=== PATIENT | male | born 1965 | race Caucasian/White ===

== ENCOUNTER 2016-08-14 12:08 | Emergency (ER) | payer OTHER ==
[~2016-08-14] VITALS: Ht 175.3 cm; Wt 63.0 kg
[2016-08-14 14:15] VITALS: BP 121/74
== END 2016-08-14 14:15 | disposition home or self-care (01) | DRG 115 ==
LOC: ED 12:08
PROC: 08CSXZZ Extirpation of Matter from Right Conjunctiva, External Approach (ICD-10-PCS; principal; 2016-08-14)
DX: T15.11XA Foreign body in conjunctival sac, right eye, initial encounter (principal); H53.8 Other visual disturbances; H57.11 Ocular pain, right eye; W22.8XXA Striking against or struck by other objects, initial encounter; Y93.89 Activity, other specified; Y92.89 Other specified places as the place of occurrence of the external cause

== ENCOUNTER 2017-08-01 08:49 | Emergency (ER) | payer OTHER ==
[~2017-08-01] VITALS: Ht 175.3 cm; Wt 62.0 kg
[2017-08-01] MEDS ORDERED: GLUCOSAMINE CHO1 CA3 PO (09:06)
[2017-08-01] MEDS ORDERED: MULTI VIT PO (09:06)
[2017-08-01] MEDS ORDERED: IMITREX100 M1 PO (09:58)
[2017-08-01 10:10] VITALS: BP 155/89
== END 2017-08-01 10:10 | disposition home or self-care (01) | DRG 103 ==
LOC: ED 08:49
DX: G43.909 Migraine, unspecified, not intractable, without status migrainosus (principal); F17.210 Nicotine dependence, cigarettes, uncomplicated; H53.149 Visual discomfort, unspecified

== ENCOUNTER 2017-08-08 10:15 | Emergency (ER) | payer OTHER ==
[~2017-08-08] VITALS: Ht 175.3 cm; Wt 66.0 kg
[~2017-08-08 10:15] MED LIST: GLUCOSAMINE CHO1 CA3 PO; IMITREX100 M1 PO; MULTI VIT PO
[2017-08-08 11:21] LABS: INFLUENZA A NONE DETECTED (NONE DETECT); INFLUENZA B NONE DETECTED (NONE DETECT)
[2017-08-08] MEDS ORDERED: ZPAK PO (11:23)
[2017-08-08 11:39] VITALS: BP 127/83
== END 2017-08-08 11:44 | disposition home or self-care (01) | DRG 153 ==
LOC: ED 10:15
PROVIDERS: Family Medicine
DX: J06.9 Acute upper respiratory infection, unspecified (principal); F17.210 Nicotine dependence, cigarettes, uncomplicated; R05 Cough

== ENCOUNTER 2018-05-29 11:37 | Observation (INO) | payer SELFPAY ==
[~2018-05-29] VITALS: Ht 175.3 cm; Wt 68.9 kg
[~2018-05-29 11:37] MED LIST changes: +ZPAK PO
[2018-05-29 11:57] LABS: HEMATOCRIT 43.4 % (39.0-50.0); HEMOGLOBIN 14.9 g/dl (14.0-18.0); IMMATURE GRANULOCYTES 0.3 % (0.0-5.0); MEAN CELL VOLUME 92.9 fL CALC (80.0-100.0); MEAN CORPUSCULAR HGB 31.9 pG CALC (26.0-32.0); MEAN CORPUSCULAR HGB CONC 34.3 g/L CALC (32.0-36.0); NEUT# 6.59 thou/uL (1.82-7.42); RED BLOOD COUNT 4.67 mill/uL (4.70-6.10); RED CELL DISTRI WIDTH 13.3 % (11.5-15.5)
[2018-05-29 12:25] LABS: ANION GAP 13 (6-22 (CALC)); BUN 8 mg/dL (9-20); BUN/CREATININE RATIO 11 (12-20 (CALC)); CARBON DIOXIDE 25 mmol/l (22-30); CHLORIDE 107 mmol/l (95-108); CREATININE 0.7 mg/dL (0.7-1.3); GFR > 60 ML/MIN (>=60 (CALC)); GFR FOR AFR.AMER. > 60 ML/MIN (>=60 (CALC)); SODIUM 141 mmol/l (137-146)
[2018-05-29 14:11] VITALS: BP 130/71
[2018-05-29 15:45] VITALS: BP 140/85
[2018-05-29 19:35] VITALS: BP 131/89
[2018-05-29 23:40] VITALS: BP 141/78
[2018-05-30 04:16] VITALS: BP 140/69
[2018-05-30 05:47] LABS: HEMATOCRIT 44.6 % (39.0-50.0); HEMOGLOBIN 15.2 g/dl (14.0-18.0); IMMATURE GRANULOCYTES 0.2 % (0.0-5.0); MEAN CELL VOLUME 92.9 fL CALC (80.0-100.0); MEAN CORPUSCULAR HGB 31.7 pG CALC (26.0-32.0); MEAN CORPUSCULAR HGB CONC 34.1 g/L CALC (32.0-36.0); NEUT# 5.19 thou/uL (1.82-7.42); RED BLOOD COUNT 4.8 mill/uL (4.70-6.10); RED CELL DISTRI WIDTH 13.2 % (11.5-15.5)
[2018-05-30 06:13] LABS: ALBUMIN 3.8 g/dL (3.2-5.0); ALKALINE PHOSPHATASE 63 u/l (38-126); ANION GAP 12 (6-22 (CALC)); BILIRUBIN, TOTAL 0.5 mg/dL (0.0-1.4); BUN 12 mg/dL (9-20); BUN/CREATININE RATIO 14 (12-20 (CALC)); CALCULATED LDLCHOLESTEROL 103 mg/dL (62-129 (CALC)); CARBON DIOXIDE 25 mmol/l (22-30); CHLORIDE 107 mmol/l (95-108); CREATININE 0.8 mg/dL (0.7-1.3); GFR > 60 ML/MIN (>=60 (CALC)); GFR FOR AFR.AMER. > 60 ML/MIN (>=60 (CALC)); HDL CHOLESTEROL 42 mg/dL (>=40); MAGNESIUM 1.8 mg/dL (1.6-2.3); SGOT/AST 19 u/l (17-59); SODIUM 140 mmol/l (137-146); TOTAL CHOLESTEROL 168 mg/dl (0-199); TOTAL PROTEIN 6.4 g/dL (6.3-8.2); TOTAL TRIGLYCERIDES 116 mg/dl (30-149); VLDL CHOLESTROL 23 mg/dl (8-62 (CALC))
[2018-05-30 08:03] VITALS: BP 134/83
[2018-05-30 11:06] VITALS: BP 135/71
[2018-05-30] MEDS ORDERED: COZAAR25 MG PO (13:10)
== END 2018-05-30 14:49 | disposition home or self-care (01) | DRG 313 ==
LOC: ED 11:37 → ED-I 12:37 → ED 12:48 → MS2 12:49
PROVIDERS: Family Medicine; ADMIT Internal Medicine Nephrology; ATTEND Internal Medicine Nephrology
DX: R07.89 Other chest pain (principal); I10 Essential (primary) hypertension; F17.210 Nicotine dependence, cigarettes, uncomplicated; Z82.49 Family history of ischemic heart disease and other diseases of the circulatory system
CPT/HCPCS: G0378; J1650

== ENCOUNTER 2018-06-12 13:30 | Emergency (ER) | payer OTHER ==
[~2018-06-12] VITALS: Ht 175.3 cm; Wt 65.0 kg
[~2018-06-12 13:30] MED LIST changes: +COZAAR25 MG PO
[2018-06-12 14:30] VITALS: BP 121/80
== END 2018-06-12 14:30 | disposition home or self-care (01) | DRG 605 ==
LOC: ED 13:30
DX: S90.32XA Contusion of left foot, initial encounter (principal); M19.90 Unspecified osteoarthritis, unspecified site; W20.8XXA Other cause of strike by thrown, projected or falling object, initial encounter; Y92.89 Other specified places as the place of occurrence of the external cause; Y99.0 Civilian activity done for income or pay

== ENCOUNTER 2022-02-25 13:51 | Emergency (ER) | payer OTHER ==
[~2022-02-25] VITALS: Ht 175.3 cm; Wt 66.8 kg
[2022-02-25 16:20] LABS: HEMATOCRIT 50.5 % (39.0-50.0); IMMATURE GRANULOCYTES 0.3 % (0.0-5.0); MEAN CELL VOLUME 91.5 fL CALC (80.0-100.0); MEAN CORPUSCULAR HGB 31.5 pG CALC (26.0-32.0); MEAN CORPUSCULAR HGB CONC 34.5 g/dL CAL (32.0-36.0); NEUT# 10.95 thou/uL (1.82-7.42); RED BLOOD COUNT 5.52 mill/uL (4.70-6.10)
[2022-02-25 16:21] LABS: HEMOGLOBIN 17.4 g/dl (14.0-18.0); URINE BILIRUBIN - DIPSTICK NEGATIVE (NEGATIVE); URINE BLOOD DIPSTICK NEGATIVE (NEGATIVE); URINE COLOR YELLOW; URINE GLUCOSE - DIPSTICK NEGATIVE (NEGATIVE); URINE KETONE NEGATIVE (NEGATIVE); URINE LEUK ESTERASE NEGATIVE (NEGATIVE); URINE NITRITE - DIPSTICK NEGATIVE (Negative); URINE PROTEIN - DIPSTICK NEGATIVE (NEG-TRACE); URINE UROBILINOGEN - DIPSTICK 0.2 E.U./dL (0.2)
[2022-02-25 16:32] LABS: ALBUMIN 4.8 g/dL (3.2-5.0); ALKALINE PHOSPHATASE 77 u/l (38-126); ANION GAP 16 (6-22 (CALC)); BILIRUBIN, TOTAL 0.5 mg/dL (0.0-1.4); BUN 10 mg/dL (9-20); BUN/CREATININE RATIO 10 (12-20 (CALC)); CARBON DIOXIDE 29 mmol/l (22-30); CHLORIDE 101 mmol/l (95-108); CPK 64 u/l (52-200); CREATININE 0.9 mg/dL (0.7-1.3); GFR FOR AFR.AMER. > 60 ML/MIN (>=60 (CALC)); GFR OTHER RACES > 60 ML/MIN (>=60 (CALC)); LIPASE 179 u/l (23-300); POTASSIUM 3.7 mmol/l (3.5-5.1); SGOT/AST 32 u/l (17-59); SODIUM 142 mmol/l (137-146); TOTAL PROTEIN 8.8 g/dL (6.3-8.2)
[2022-02-25] MEDS ORDERED: CYCLOBENZAPRINE10 MG PO (18:27)
[2022-02-25] MEDS ORDERED: HYDROCO/APAP1 TA9 PO (18:27)
[2022-02-25] MEDS ORDERED: NAPROXEN500 MG PO (18:27)
[2022-02-25 18:39] VITALS: BP 126/82
== END 2022-02-25 18:54 | disposition home or self-care (01) | DRG 563 ==
LOC: ED 13:51
PROVIDERS: Nurse Practitioner
DX: S39.012A Strain of muscle, fascia and tendon of lower back, initial encounter (principal); S30.0XXA Contusion of lower back and pelvis, initial encounter; W31.89XA Contact with other specified machinery, initial encounter
CPT/HCPCS: Q9967

== ENCOUNTER 2022-12-08 14:39 | Observation (INO) | payer BC ==
[2022-12-08] VITALS (13 sets, daily range): BP systolic 124–149; BP diastolic 74–95
[~2022-12-08] VITALS: Ht 175.3 cm; Wt 63.5 kg
[~2022-12-08 14:39] MED LIST changes: +CYCLOBENZAPRINE10 MG PO; +HYDROCO/APAP1 TA9 PO; +NAPROXEN500 MG PO
[2022-12-08 15:07] LABS: BASO% 0.3 % (0-3); EOS% 1.4 % (0-8); HEMATOCRIT 50.6 % (39.0-50.0); IMMATURE GRANULOCYTES 0.2 % (0.0-5.0); LYMPH% 16.2 % (15-41); MEAN CELL VOLUME 91.7 fL CALC (80.0-100.0); MEAN CORPUSCULAR HGB 30.8 pG CALC (26.0-32.0); MEAN CORPUSCULAR HGB CONC 33.6 g/dL CAL (32.0-36.0); MONO% 9.1 % (2-13); NEUT# 10.86 thou/uL (1.82-7.42); NEUT% 72.8 % (42-76); RED BLOOD COUNT 5.52 mill/uL (4.70-6.10); RED CELL DISTRI WIDTH 14.1 % (11.5-15.5)
[2022-12-08 15:13] LABS: ALBUMIN 4.7 g/dL (3.2-5.0); BILIRUBIN, TOTAL 0.6 mg/dL (0.2-1.3); CREATININE 1.8 mg/dL (0.7-1.3); POTASSIUM 3.6 mmol/l (3.5-5.1); TOTAL PROTEIN 8.5 g/dL (6.3-8.2)
[2022-12-08 15:46] LABS: URINE COLOR YELLOW; URINE GLUCOSE - DIPSTICK NEGATIVE (NEGATIVE); URINE KETONE TRACE mg/dL (NEGATIVE)
[2022-12-08 15:47] LABS: URINE BLOOD DIPSTICK MODERATE (NEGATIVE); URINE LEUK ESTERASE MODERATE (NEGATIVE); URINE NITRITE - DIPSTICK NEGATIVE (Negative); URINE PH 5.5 (4.5-8.0); URINE PROTEIN - DIPSTICK 100 mg/dL (NEG-TRACE); URINE SPECIFIC GRAVITY 1.025; URINE UROBILINOGEN - DIPSTICK 0.2 E.U./dL (0.2)
[2022-12-08 15:58] LABS: URINE WBC 20-50 WBC/hpf (0-5)
[2022-12-08 15:59] LABS: URINE BACTERIA FEW hpf
[2022-12-09 00:25] VITALS: BP 112/70
[2022-12-09 00:34] VITALS: BP 112/70
[2022-12-09 04:00] VITALS: BP 132/75
[2022-12-09 04:01] VITALS: BP 132/75
[2022-12-09 05:53] LABS: MEAN CELL VOLUME 94.4 fL CALC (80.0-100.0); MEAN CORPUSCULAR HGB 31.4 pG CALC (26.0-32.0); MEAN CORPUSCULAR HGB CONC 33.3 g/dL CAL (32.0-36.0); RED BLOOD COUNT 4.43 mill/uL (4.70-6.10); RED CELL DISTRI WIDTH 14.3 % (11.5-15.5)
[2022-12-09 06:07] LABS: HEMATOCRIT 41.8 % (39.0-50.0); HEMOGLOBIN 13.9 g/dl (14.0-18.0)
[2022-12-09 06:28] VITALS: BP 119/72
[2022-12-09 06:30] LABS: ALKALINE PHOSPHATASE 65 u/l (38-126); ANION GAP 8 (6-22 (CALC)); BILIRUBIN, TOTAL 0.5 mg/dL (0.2-1.3); BUN 16 mg/dL (9-20); BUN/CREATININE RATIO 15 (12-20 (CALC)); CARBON DIOXIDE 25 mmol/l (22-30); CHLORIDE 109 mmol/l (95-108); GFR FOR AFR.AMER. > 60 ML/MIN (>=60 (CALC)); GFR OTHER RACES > 60 ML/MIN (>=60 (CALC)); POTASSIUM 3.4 mmol/l (3.5-5.1); SGOT/AST 29 u/l (17-59); SODIUM 139 mmol/l (137-146)
[2022-12-09 06:34] LABS: ALBUMIN 3.4 g/dL (3.2-5.0); TOTAL PROTEIN 6.4 g/dL (6.3-8.2)
[2022-12-09 11:26] VITALS: BP 124/73
[2022-12-09] MEDS ORDERED: CIPROFLOXACN500 MG PO (13:26)
== END 2022-12-09 14:42 | disposition home or self-care (01) | DRG 641 ==
LOC: ED 14:39 → ED-I 16:00 → ED 16:45 → MS2 16:46
PROVIDERS: Family Medicine; ADMIT Student in an Organized Health Care Education/Training Program; ATTEND Student in an Organized Health Care Education/Training Program
DX: E86.0 Dehydration (principal); N17.9 Acute kidney failure, unspecified; N39.0 Urinary tract infection, site not specified; F17.200 Nicotine dependence, unspecified, uncomplicated; Z87.442 Personal history of urinary calculi; Z87.440 Personal history of urinary (tract) infections
CPT/HCPCS: G0378; J1650

== ENCOUNTER 2022-12-28 16:39 | Emergency (ER) | payer BC ==
[2022-12-28] VITALS (14 sets, daily range): BP systolic 115–140; BP diastolic 75–93
[~2022-12-28] VITALS: Ht 175.3 cm; Wt 77.0 kg
[~2022-12-28 16:39] MED LIST changes: +CIPROFLOXACN500 MG PO
[2022-12-28 17:21] LABS: BASO% 0.4 % (0-3); IMMATURE GRANULOCYTES 0.2 % (0.0-5.0); LYMPH% 21.3 % (15-41); MEAN CELL VOLUME 92.8 fL CALC (80.0-100.0); MEAN CORPUSCULAR HGB CONC 34.4 g/dL CAL (32.0-36.0); MONO% 9.8 % (2-13); NEUT# 7.66 thou/uL (1.82-7.42); NEUT% 66.3 % (42-76); RED BLOOD COUNT 5.16 mill/uL (4.70-6.10); RED CELL DISTRI WIDTH 13.8 % (11.5-15.5)
[2022-12-28 17:25] LABS: HEMATOCRIT 47.9 % (39.0-50.0); HEMOGLOBIN 16.5 g/dl (14.0-18.0)
[2022-12-28 17:33] LABS: ALKALINE PHOSPHATASE 70 u/l (38-126); BILIRUBIN, TOTAL 0.6 mg/dL (0.2-1.3); BUN 24 mg/dL (9-20); BUN/CREATININE RATIO 17 (12-20 (CALC)); CARBON DIOXIDE 25 mmol/l (22-30); CHLORIDE 104 mmol/l (95-108); CPK 76 u/l (55-170); CREATININE 1.4 mg/dL (0.7-1.3); GFR FOR AFR.AMER. > 60 ML/MIN (>=60 (CALC)); GFR OTHER RACES 52 ML/MIN (>=60 (CALC)); SGOT/AST 40 u/l (17-59); SODIUM 139 mmol/l (137-146)
[2022-12-28 17:34] LABS: ALBUMIN 4.7 g/dL (3.2-5.0); ANION GAP 15 (6-22 (CALC)); POTASSIUM 4.6 mmol/l (3.5-5.1); TOTAL PROTEIN 8.3 g/dL (6.3-8.2)
[2022-12-28 19:15] LABS: URINE BILIRUBIN - DIPSTICK Negative (NEGATIVE); URINE BLOOD DIPSTICK Negative (NEGATIVE); URINE GLUCOSE - DIPSTICK Negative (NEGATIVE); URINE KETONE Negative (NEGATIVE); URINE LEUK ESTERASE Negative (NEGATIVE); URINE NITRITE - DIPSTICK Negative (Negative); URINE PROTEIN - DIPSTICK 100 mg/dL (NEG-TRACE); URINE SPECIFIC GRAVITY 1.025; URINE UROBILINOGEN - DIPSTICK 0.2 E.U./dL (0.2)
[2022-12-28 19:18] LABS: URINE COLOR Yellow; URINE RBC 0-2 RBC/hpf (0-5); URINE WBC 0-2 WBC/hpf (0-5)
== END 2022-12-28 20:05 | disposition home or self-care (01) | DRG 641 ==
LOC: ED 16:39
PROVIDERS: Nurse Practitioner
DX: E86.0 Dehydration (principal); F17.200 Nicotine dependence, unspecified, uncomplicated